=== PATIENT | male | born 1945 | race Caucasian/White ===

== ENCOUNTER → 2021-03-16 11:17 | Outpatient (CLI) | payer MEDICARE, OTHER, SELFPAY ==
--- NOTE | 2021-03-16 11:22 | RAD_ITS ---
STUDY: X-RAY - LEFT KNEE REASON FOR EXAM: Male, 75 years old. Left knee pain and swelling TECHNIQUE: 4 view(s) of the knee. COMPARISON: None. FINDINGS: Normal visualized distal femur. Normal visualized proximal tibia and fibula. Normal proximal tibiofibular articulation. There is mild degenerative arthrosis of the medial femorotibial compartment. Normal lateral femorotibial compartment. There is minimal degenerative arthrosis of the patellofemoral articulation. There is a soft tissue prominence in the suprapatellar region suggesting a trace volume joint effusion. The soft tissue structures are unremarkable. RAD/Knee 4 or More Views IMPRESSION: Medial compartment osteoarthrosis. Trace joint effusion. Electronically Signed: Louie Stafford MD (Brooks) at 14:33 EDT , Service support ,
== END ==
PROVIDERS: PCP Family Medicine; Referring Provider Family Medicine; Visit Provider Family Medicine
DX: M25.562 Pain in left knee (principal)
CPT/HCPCS: 73564

== ENCOUNTER → 2021-05-15 07:15 | Outpatient (CLI) | payer MEDICARE, OTHER, SELFPAY ==
[2021-05-15 10:00] LABS: Hematocrit 49.5 % (40-54); Hemoglobin 15.9 g/dL (13.0-16.5); Mean Corp Hgb Conc 32.1 g/dL (32-36); Mean Corpuscular Hgb 29.8 pg (27.0-32.0); Mean Corpuscular Volume 92.7 fL (80-94); Mean Platelet Vol. 9.7 fl (6.2-12.0); Platelet Count 201 K/mm3 (150-450); RBC Distribution Width CV 12.9 % (11.6-14.6); RBC Distribution Width SD 43.8 fl (35.1-43.9); Red Blood Count 5.34 M/mm3 (4.6-6.2); White Blood Count 5.2 K/mm3 (4.4-11.0)
[2021-05-15 10:22] LABS: Vitamin B12 367 pg/mL (211-911)
[2021-05-15 10:42] LABS: ALB/GLOB Ratio 0.9 RATIO (0.9-2.4); AST(SGOT) 16 U/L (15-37); Alanine Aminotransfer ALT/SGPT 26 U/L (16-61); Albumin, Serum 3.6 g/dL (3.2-5.0); Alkaline Phosphatase 41 U/L (45-117); Anion Gap 3 (5-15); BUN 15 mg/dL (7-18); Calcium,Total 9.5 mg/dL (8.5-10.1); Chloride 107 mmol/L (98-107); Cholesterol 219 mg/dL (200); Creatinine, Serum 1.07 mg/dL (0.70-1.30); EST Glomerular Filtration Rate 71 mL/min (>60); Est Glom Filt Rate - Afr Amer 86 mL/min (>60); Globulin 3.8 g/dL (2.2-4.2); Glucose 84 mg/dL (74-106); High Density Lipoprotein 48 mg/dL; Potassium 4.2 mmol/L (3.5-5.1); Protein, Total 7.4 g/dL (6.4-8.2); Sodium Level 140 mmol/L (136-145); Thyroid Stim Hormone (TSH) 1.05 uIU/mL (0.358-3.74); Triglycerides 156 mg/dL; Very Low Density Lipoprotein 31 mg/dL (5-40)
[2021-05-18 16:34] LABS: Vitamin B1, Thiamine 145.3 nmol/L (66.5-200.0)
== END ==
PROVIDERS: PCP Family Medicine; Referring Provider Psychiatry & Neurology Neurology; Visit Provider Psychiatry & Neurology Neurology
DX: G31.84 Mild cognitive impairment of uncertain or unknown etiology (principal); E78.00 Pure hypercholesterolemia, unspecified
CPT/HCPCS: 36415; 80053; 80061; 82607; 82746; 84425; 84443; 85027

== ENCOUNTER 2022-11-01 10:57 | Emergency (ER) | payer MEDICARE, OTHER, SELFPAY ==
[2022-11-01 10:58] VITALS: BP 187/76; PULSE 50; RESP 17; TEMP 36.1; O2SAT 94; BMI 29.8
--- NOTE | 2022-11-01 11:09 | EKG12_ITS ---
Test Reason : HIGH BP Blood Pressure : / mmHG Vent. Rate : 048 BPM Atrial Rate : 048 BPM P-R Int : 158 ms QRS Dur : 082 ms QT Int : 438 ms P-R-T Axes : 000 062 055 degrees QTc Int : 391 ms Sinus bradycardia Otherwise normal ECG Confirmed by WILMAN RODRIGUEZ, NARESH ([id number]), food expeditor WISAM VOGT ([id number]) on 11/04/2022 12:39:07 PM Referred By: PATRICK Confirmed By:NARESH STOVALL MD
--- NOTE | 2022-11-01 11:09 | EX.ED.DYSGE1 ---
HPI History of Present Illness Chief Complaint: General Illness Detail of Chief Complaint: Patient was sent from urgent care because of bradycardia Informant: patient Onset/Context/Timing Onset: - (Patient fell down a flight of steps October 26) Context: Sudden Onset Timing: Intermittent Quality: Syncopal episode Location: Home Current Severity: Gone Maximum Severity: Not applicable Worsened by: Nothing Relieved by: Nothing specific Associated Symptoms Associated Symptoms: Patient states he did not feel right did feel sick to his stomach may have Narrative Narrative: Patient is a 77-year-old male with no past medical history on no medication who was walking up a flight of stairs to go to his bedroom on October 26. At the top of the steps he became lightheaded felt nauseous and may have become diaphoretic. He felt down the flight of steps. He states he woke at the bottom of the steps. He states he could not move. When he attempted to get up he passed out again. He slept on the floor for 4 hours. He then got up and went to his bed. His and daughter thought he should be checked out. He went to the urgent care. An EKG was performed which revealed heart rate in the 40s. The nurse practitioner called the emergency room. I did speak with her. She was concerned because he fell down a flight of steps and he is bradycardic. She informed me that he is on no meds with no significant past medical history. He denies headache. He denies visual, ocular auditory symptoms. [place] ringing in his ears. He denies epistaxis. Denies dental trauma. He denies neck pain. He denies paresthesia, anesthesia or motor weakness present at the time of the fall. He denied chest discomfort of any type. He denies shortness of breath. He denies leg pain, swelling discoloration. He states he believes he has a bruise right hip area. Prior similar symptoms: No Recent Illness/Hospitalization: No PFSH PFSH Medical History Back ache Bowel incontinence Cognitive change Glaucoma Hepatitis Hypercholesterolemia Left knee pain MRI of brain abnormal Urinary calculus Allergy/AdvReac Type Severity Reaction Status Date / Time No Known Allergies Allergy Verified 11/01/22 10:58 Family History Mother Arthritis High cholesterol Sister History of blood clots Cervical cancer Father Myocardial infarction, Onset Age: 60 Heart disease Surgical History History of appendectomy Social History (Updated 11/01/22 @ 11:[address] Main Aguirre MD) household members: spouse Smoking Status: Never smoker Electronic Cigarette Use: not used second hand exposure: No alcohol intake: never substance use type: does not use ROS ROS ED Constitutional Constitutional ED: Denies chills, fever(s), subjective, sweats or weight loss Eyes Eyes: Denies blurry vision, change in vision or diplopia ENT ENT ED: Denies ear pain, rhinorrhea or sore throat Cardiovascular Cardiovascular: Denies chest pain, orthopnea, palpitations, paroxysmal nocturnal dyspnea or racing heartbeat Respiratory/Chest Respiratory/Chest: Denies cough, dyspnea, dyspnea on exertion, orthopnea or paroxysmal nocturnal dyspnea Gastrointestinal Gastrointestinal: Denies abdominal pain, diarrhea, melena, nausea or vomiting Genitourinary Genitourinary ED: Denies dysuria, hematuria or urinary frequency Musculoskeletal Musculoskeletal: Denies arthralgias, back pain, myalgias or neck pain Integumentary Denies Abrasions or rash Neurologic Neurologic: Denies headache(s), paresthesias or weakness Endocrine Endocrinology: Denies cold intolerance, heat intolerance, polydipsia or polyuria Hematologic/Lymphatic Hematologic/Lymphatic: Reports systems reviewed and no addt'l complaints, except as documented and other Details: He is not on antiplatelet or anticoagulant. EXAM Physical Exam Const Vital Signs: 11/01/22 10:58 11/01/22 11:01 11/01/22 12:00 Temperature 96.9 F L Temperature Source Temporal Pulse Rate 50 L 44 L Respiratory Rate 17 13 Respiratory Effort Normal Non-Labored Respiratory Pattern Normal Blood Pressure 187/76 H 155/73 H Blood Pressure Mean 113 100 Pulse Ox 94 94 Oxygen Delivery Method Room Air Room Air Positive well nourished and well developed General Appearance ED: well developed and NAD; Negative for cyanotic, diaphoretic or pallor HEENT Reports moist mucous membranes HEENT Narrative: Head is atraumatic normocephalic. There is no clinical findings of basilar skull fracture. There is no septal deviation or hematoma. There is no dental trauma. Posterior pharynx erythema or exudate. Uvula is midline. There is no deviation of the tongue with protrusion. Eyes PERRL and EOMs intact bilaterally Eyes Narrative: There is no APD. There is no nystagmus. There is no subconjunctival hemorrhage noted. There is no hyperesthesia of the infraorbital nerve. There is no step-off with palpation in the infraorbital rim. General Eye ED: Negative for pale conjunctiva or scleral icterus Neck no lymphadenopathy, supple and no JVD Neck Narrative: There is no pain palpation of the posterior neck. He has full active range of motion without hesitation or grimacing or complaint of pain. Chest Wall inspection of chest normal and palpation of chest normal Resp normal respiratory effort and clear to auscultation bilaterally Cardio regular rhythm, S1 normal heart sound, S2 normal heart sound and no murmurs Rate: bradycardia GI normal to inspection, nondistended, normoactive bowel sounds, non-tender, non-distended and no masses; Negative for hepatosplenomegaly Palpation: soft Back/Spine no CVA tenderness Cervical Spine: Negative for cervical spine tenderness Thoracic Spine / Upper Back: Negative for thoracic spinal tenderness Lumbar Spine / Lower Back: Negative for lumbar spinal tenderness Extremity normal to inspection General Extremety ED: Negative for edema or tenderness General Extremity: Negative for edema Neuro No oriented x3, No CN's II-XII intact bilaterally and No no sensory deficits noted Neuro Narrative: There is no dysmetria. Bicep, brachialis, triceps, patella and ankle reflexes are 2+ and symmetric. There is no clonus or Babinski sign noted. Sensorium / Orientation: alert Sensory Exam: No sensory level loss detected Motor Exam: strength 5/5 throughout Psych mental status grossly normal Skin no rashes or lesions noted, no wounds and skin turgor normal General Skin Exam: elasticity normal; Negative for jaundice or pallor MDM MDM MDM Narrative Medical decision making narrative: Monitor reveals a sinus bradycardia rate of 47. Twelve-lead EKG was obtained to evaluate for cardiac ischemia and confirmed the patient is in a sinus rhythm. Troponin was obtained to evaluate for cardiac ischemia. CBC to assess H&H. BMP to assess renal function and electrolytes. If patient's work-up is negative we will contact ground control approach technician on-call Dr. Bryce Fox regarding observation telemetry versus outpatient Holter monitor and cardiac follow-up. Review of prior records indicates patient is on no meds and has no significant past medical history. There is note that he has history of glaucoma. He also has documentation for mild cognitive impairment. Case was just passed with Dr. Bryce Fox. Requested 48-hour Holter monitor and for patient to call the office for follow-up appointment. Per the [place] CT head rules and there is no evidence of trauma he has no complaint of headache fact this occurred 6 days ago and has a nonfocal neurologic exam imaging of the head is not required. Per Nexus criteria since he has no pain no limited range of motion imaging is not required. Lab Data Attestation: I reviewed the patient's lab results. Lab results narrative: CBC is unremarkable. Basic metabolic panel is unremarkable. Troponin is negative with symptoms that occurred 6 days ago. Labs: Laboratory Results - last 24 hr 11/01/22 11/01/22 11:05 11:05 WBC 5.9 RBC 5.68 Hgb 17.0 H Hct 51.0 MCV 89.8 MCH 29.9 MCHC 33.3 RDW Std Deviation 41.5 RDW Coeff of Donn 12.5 Plt Count 298 MPV 9.8 Sodium 140 Potassium 4.4 Chloride 106 Carbon Dioxide 29.0 Anion Gap 5 BUN 13 Creatinine 1.21 Estim Creat Clear Calc 47.80 Est GFR (MDRD) Af Amer 75 Est GFR (MDRD) Non-Af 62 BUN/Creatinine Ratio 10.7 Glucose 95 Calcium 9.3 Troponin I High Sens 6 EKG Initial EKG: Attestation: I personally reviewed and interpreted this EKG as follows: Interpretation: Sinus Bradycardia (Rate is 48. The EKG is otherwise unremarkable. [place] interval is 158 ms. QRS duration 82 ms. QT duration 438 ms. [place] is normal. There are note was cute ischemic changes. Prior EKG was normal. The only difference is the bradycardia.) Discharge Plan Triage Chief Complaint: General Illness ED Provider: Main Aguirre Dx/Rx/DC Orders Clinical Impression: Syncope and collapse, Hypercholesterolemia, Sinus bradycardia, Fall down steps Instructions: Dizziness Fainting Causes, ED Bradycardia Primary Care Provider: Wan Fink Referrals: Bryce Fox MD [Med Staff - Active Staff] - 3-5 Days Wan Fink MD [Primary Care Provider] - Disposition Disposition: Home, Self Care
[2022-11-01 11:22] LABS: Mean Corp Hgb Conc 33.3 g/dL (32-36); Mean Corpuscular Hgb 29.9 pg (27.0-32.0); Mean Corpuscular Volume 89.8 fL (80-94); Mean Platelet Vol. 9.8 fl (6.2-12.0); Platelet Count 298 K/mm3 (150-450); RBC Distribution Width CV 12.5 % (11.6-14.6); RBC Distribution Width SD 41.5 fl (35.1-43.9); Red Blood Count 5.68 M/mm3 (4.6-6.2); White Blood Count 5.9 K/mm3 (4.4-11.0)
[2022-11-01 11:42] LABS: Anion Gap 5 (5-15); BUN 13 mg/dL (7-18); BUN/Creat Ratio 10.7 RATIO (10-20); Calcium,Total 9.3 mg/dL (8.5-10.1); Chloride 106 mmol/L (98-107); Creatinine, Serum 1.21 mg/dL (0.70-1.30); EST Glomerular Filtration Rate 62 mL/min (>60); Est Glom Filt Rate - Afr Amer 75 mL/min (>60); Glucose 95 mg/dL (74-106); Potassium 4.4 mmol/L (3.5-5.1); Sodium Level 140 mmol/L (136-145); Troponin-I HS 6 pg/mL (3.0-78.0)
[2022-11-01 12:00] VITALS: BP 155/73; PULSE 44; RESP 13; O2SAT 94
[2022-11-01 12:53] VITALS: BP 166/67; PULSE 49
== END 2022-11-01 13:17 | disposition home or self-care (01) ==
PROVIDERS: Emergency Provider Emergency Medicine; PCP Family Medicine; Visit Provider Emergency Medicine
DX: R55 Syncope and collapse (principal); E78.00 Pure hypercholesterolemia, unspecified; R00.1 Bradycardia, unspecified
CPT/HCPCS: 80048; 84484; 85027; 93005; 93225; 93226; 99284; A4216

== ENCOUNTER 2022-11-01 12:59 | Outpatient (CLI) | payer MEDICARE, OTHER, SELFPAY | END 2022-11-01 23:59 | disposition home or self-care (01) | LOC: CVS 13:01 | PROVIDERS: PCP Family Medicine; Visit Provider Emergency Medicine | DX: R00.1 Bradycardia, unspecified (principal) | CPT/HCPCS: 93225; 93226 ==

== ENCOUNTER 2024-04-23 12:13 | Emergency (ER) | payer MEDICARE, OTHER, SELFPAY ==
[2024-04-23 12:14] VITALS: PULSE 56; RESP 21; TEMP 36.5; O2SAT 96; BMI 32.3
[2024-04-23 12:54] VITALS: BMI 32.3
--- NOTE | 2024-04-23 12:54 | EKG12_ITS ---
Test Reason : DIZZINESS Blood Pressure : / mmHG Vent. Rate : 052 BPM Atrial Rate : 052 BPM P-R Int : 166 ms QRS Dur : 082 ms QT Int : 416 ms P-R-T Axes : 059 057 054 degrees QTc Int : 386 ms Poor data quality, interpretation may be adversely affected Sinus bradycardia with Premature atrial complexes Otherwise normal ECG Confirmed by Marin uTcker ([id number]), editor trade journal YASMANY HUERTAS ([id number]) on 04/26/2024 2:03:22 PM Referred By: GASTON Confirmed By:Marin Tucker
--- NOTE | 2024-04-23 13:05 | ED.VIS.STROK ---
HPI History of Present Illness Chief Complaint: Dizziness Narrative Narrative: 78-year-old male past medical history of previous stroke on August 02 of last year presents with what he calls a flaky head. It is more feelings of lightheadedness than vertiginous symptoms. His family who is present states this is a same symptom that he had when he had his stroke. They relate history that they brought him in with his flaky feeling in his head, with stuttering symptoms, and he was admitted, within 48 hours his stroke worsened to the point where he had a left-sided paralysis and a facial droop that has improved after being at [facility]. He was at the primary care provider's office today when he started having this feeling again. He does take Eliquis because of the stroke. He had a loop recorder inserted few weeks ago to see what was going on with his heart to see if he was in atrial fibrillation. They are unsure as to the cause of his strokes but sent him to the emergency department because of the same feeling that he had. He denies paresthesias, difficulty with speech, or other symptoms. [facility] Medical History Stroke/cerebrovascular accident Hepatitis Glaucoma Back ache MRI of brain abnormal Left knee pain Cognitive change Hypercholesterolemia Urinary calculus Bowel incontinence Allergy/AdvReac Type Severity Reaction Status Date / Time No Known Allergies Allergy Verified 04/23/24 12:19 Family History Mother Arthritis High cholesterol Sister History of blood clots Cervical cancer Father Myocardial infarction, Onset Age: 60 Heart disease Surgical History History of loop recorder History of appendectomy Social History household members: spouse Smoking Status: Never smoker Electronic Cigarette Use: not used second hand exposure: No alcohol intake: never substance use type: does not use ROS ROS ED ROS Narrative Constitutional: No fever, no chills. HEENT: No sore throat. No neck pain. No loss of vision. No rhinorrhea. Cardiovascular: No chest pain. No palpitations. No pedal edema. Respiratory: No cough, no shortness of breath. Abdominal: No abdominal pain. No nausea. No vomiting. Genitourinary: No dysuria. No hematuria. Musculoskeletal: No myalgias. No arthralgias. Neurologic: No headaches. No dizziness. Questionable lightheadedness Flaky head Skin: No rash. No change in color. Psychiatric: No depression. No anxiety. EXAM Physical Exam Narrative Exam Narrative: Afebrile. Vital signs noted. HEENT: Normocephalic. Atraumatic. PERRL, EOMI. Neck soft and supple. No point tenderness or step off. Cardiovascular: Regular rate and rhythm. No murmurs, rubs, or gallops appreciated. Respiratory: No tachypnea. Lungs clear to auscultation bilaterally. Gastrointestinal: Abdomen soft, nontender, with normoactive bowel sounds. No rebound or guarding. Neurological: Awake. Alert. Oriented x 3. Nonfocal, nonlateralizing. Positive residual left-sided weakness with minimal ataxia of left lower extremity, significantly improved from left-sided facial droop and paralysis reported with cerebrovascular accident in 2022. Skin: No rash. Normal color. No pallor. Musculoskeletal: No pedal edema. Full range of motion extremities. Const Vital Signs: 04/23/24 12:14 04/23/24 12:54 04/23/24 13:20 Temperature 97.7 F L Temperature Source Temporal Pulse Rate 56 L 53 L Respiratory Rate 21 H 20 H Blood Pressure 139/73 H Blood Pressure Mean 95 Pulse Ox 96 95 Oxygen Delivery Method Room Air Room Air 04/23/24 14:15 Temperature Temperature Source Pulse Rate 61 Respiratory Rate 22 H Blood Pressure 129/65 H Blood Pressure Mean 86 Pulse Ox 95 Oxygen Delivery Method Room Air MDM MDM MDM Narrative Medical decision making narrative: I reviewed the patient's prior workups and laboratory work. Patient is already on Eliquis, and additionally I do not feel stroke team is indicated because his NIH stroke scale is essentially 0. Hence, I do not feel stroke team is indicated, and additionally he is not a TNK candidate as he does not have a debilitating weakness and he is already on Eliquis. I had a lengthy discussion with the patient and his family. While stroke workup will be pursued, I do not feel that he necessarily requires admission for TIA. They state that his stroke was on the jimmy, and on MRI it looks as if it had worsened after 48 hours which caused his paralysis. I reviewed his laboratory work and he has normal white count of 6.5, hemoglobin normal at 16.0 with hematocrit 48.1, platelet count normal at 242. Coagulation studies are negative with an INR of 1.0 and a PTT of 28.4. BUN is slightly elevated 23 with creatinine 1.23. Glucose is elevated appropriately at 84 with high-sensitivity troponin of 6. EKG obtained and interpreted by myself independently as sinus bradycardia with PACs at [address]pm [address] acute ST changes. No STEMI. I reviewed the radiology report of the CTA of the head and neck and there is carotid artery plaque formation but no large vessel occlusion. No evidence of acute hemorrhage. I did discuss the patient with the telemetry stroke neurologist at [facility] who performed her own evaluation and stated that the NIH stroke scale was 0 for her without deficit. Given this vague feeling of reported flaky head. I find this nonspecific. Patient is already on an anticoagulant and being worked up for his stroke from July. He was offered observation for TIA type symptoms but prefers outpatient workup which I find reasonable, and the stroke teleneurologist did find this a viable option as well to be continued to be worked up as an outpatient. Patient states he prefers discharge instead of observation. I feel he can be discharged to follow-up with his neurologist. His daughter is agreeable to the plan as well. Disposition is discharged home in stable condition. History & Record Review Discussion w/independent historian: Patient and Family Lab Data Attestation: I reviewed the patient's lab results. Labs: Laboratory Results - last 24 hr 04/23/24 13:05 WBC 6.5 RBC 5.36 Hgb 16.0 Hct 48.1 MCV 89.7 MCH 29.9 MCHC 33.3 RDW Std Deviation 42.0 RDW Coeff of Donn 12.8 Plt Count 242 MPV 9.2 Immature Gran % (Auto) 0.500 Neut % (Auto) 66.4 Lymph % (Auto) 18.3 L [place] % (Auto) 10.4 H Eos % (Auto) 3.6 Baso % (Auto) 0.8 Absolute Neuts (auto) 4.3 Absolute Lymphs (auto) 1.18 Nucleated RBC % 0 PT 13.6 INR 1.0 APTT 28.4 Sodium 138 Potassium 4.5 Chloride 106 Carbon Dioxide 27.0 Anion Gap 5 BUN 23 H Creatinine 1.23 Estim Creat Clear Calc 53.98 Est GFR (MDRD) Af Amer 73 Est GFR (MDRD) Non-Af 60 BUN/Creatinine Ratio 18.7 Glucose 84 Calcium 9.6 Troponin I High Sens 6 Radiography Diagnostic Testing: Clinical Impression(s) from Imaging Studies Chest X-Ray 04/23/24 13:35 IMPRESSION: No acute abnormality is seen. Electronically Signed: David Vieira MD at 13:48 EDT , Head/Neck CTA 04/23/24 13:55 IMPRESSION: Mild plaque formation at the origin of the right and left internal carotid arteries. No significant stenosis seen. Chronic involutional changes in the brain with evidence of prior right basal ganglia lacunar infarcts and small lacunar infarct in the left thalamus. Electronically Signed: David Vieira MD at 14:19 EDT , Management Discussion w/another healthcare provider: Headlight Adjuster ([facility] teleneurologist/stroke teleneurologist) Discharge Plan Triage Chief Complaint: Dizziness ED Provider: Ruddy Shah Dx/Rx/DC Orders Clinical Impression: Lightheadedness, History of stroke Instructions: ED Near-Fainting, Uncertain Cause Primary Care Provider: Matt Cohen Referrals: Wan Fink MD [Non-Staff] - Activity Restrictions/Additional Instructions: Return with new or worsening symptoms. Follow-up with your neurologist as soon as possible. Continue your Eliquis. Print Language: French Disposition Disposition: Home, Self Care
[2024-04-23 13:19] LABS: Absolute Lymphocyte Count 1.18 X10^3/uL (0.83-4.51); Absolute Neutrophil Count 4.3 X10^3/uL (2.0-7.7); Basophil# 0.05 X10^3/uL; Basophil% 0.8 % (0-1); Eosinophil# 0.23 X10^3/uL; Eosinophils% 3.6 % (0-5); Hematocrit 48.1 % (40-54); Lymphocyte # 1.18 X10^3/ul (0.83-4.51); Lymphocyte % 18.3 % (19-41); Mean Corp Hgb Conc 33.3 g/dL (32-36); Mean Corpuscular Hgb 29.9 pg (27.0-32.0); Mean Corpuscular Volume 89.7 fL (80-94); Mean Platelet Vol. 9.2 fl (6.2-12.0); Monocyte# 0.67 X10^3/uL; Monocyte% 10.4 % (0-10); NRBC Flagged by Analyzer 0 % (0-5); Neutrophil # 4.29 X10^3/uL (2.7-7.7); Neutrophil % 66.4 % (47-70); Platelet Count 242 K/mm3 (150-450); RBC Distribution Width CV 12.8 % (11.6-14.6); Red Blood Count 5.36 M/mm3 (4.6-6.2); White Blood Count 6.5 K/mm3 (4.4-11.0)
[2024-04-23 13:20] VITALS: BP 139/73; PULSE 53; RESP 20; O2SAT 95
[2024-04-23 13:31] LABS: Partial Thromboplast Time 28.4 Seconds (24.1-36.2); Prothrombin Time (Protime)PT. 13.6 SECONDS (11.7-14.9)
[2024-04-23 13:33] LABS: Anion Gap 5 (5-15); BUN 23 mg/dL (7-18); BUN/Creat Ratio 18.7 RATIO (10-20); Calcium,Total 9.6 mg/dL (8.5-10.1); Chloride 106 mmol/L (98-107); Creatinine, Serum 1.23 mg/dL (0.70-1.30); EST Glomerular Filtration Rate 60 mL/min (>60); Est Glom Filt Rate - Afr Amer 73 mL/min (>60); Estimated Creatinine Clearance 53.98 ml/min; Glucose 84 mg/dL (74-106); Potassium 4.5 mmol/L (3.5-5.1); Sodium Level 138 mmol/L (136-145); Troponin-I HS 6 pg/mL (3.0-78.0)
--- NOTE | 2024-04-23 13:35 | RAD_ITS ---
STUDY: X-RAY CHEST REASON FOR EXAM: Male, 78 years old. Neuro deficit, acute, stroke suspected TECHNIQUE: Single AP portable view of the chest. COMPARISON: None. FINDINGS: EKG electrodes are seen. According device is seen overlying the left cardiac border. The lungs are clear and expanded. There is no demonstrated pleural abnormality. Normal size heart. Normal mediastinum and nilay. Normal visualized pulmonary arteries. Normal visualized aortic arch and descending thoracic aorta. Normal visualized thoracic spine. There is degenerative osteoarthritis of the bilateral shoulders. There is no demonstrated abnormality of the visualized soft tissue structures of the upper abdomen. RAD/Chest 1 View IMPRESSION: No acute abnormality is seen. Electronically Signed: David Vieira MD at 13:48 EDT ,
--- NOTE | 2024-04-23 13:55 | CT_ITS ---
STUDY: CTA HEAD AND NECK WITH CONTRAST REASON FOR EXAM: Male, 78 years old. Neuro deficit, acute, stroke suspected RADIATION DOSAGE (If Supplied By Facility): CTDIvol = ( 31.02 ) mGy, DLP = ( 1566.19 ) mGycm TECHNIQUE: CT angiography was performed with a multi-detector CT scanner. Data acquisition was obtained from the skull base through the vertex following intravenous administration of IV 100mL [id number]-370. MIP images were reconstructed from the axial data set. Post-processing of the angiographic images was performed, with multiplanar reformation and 3D reconstruction. Individualized dose optimization techniques were used for this CT. COMPARISON: No relevant priors. FINDINGS: Normal bilateral petrous carotid arteries. There is calcified plaque formation of the right cavernous carotid artery, without a cross-sectional luminal stenosis. There is calcified plaque formation of the left cavernous carotid artery, without a cross-sectional luminal stenosis. Normal right A1 segments of the anterior cerebral artery. Normal left A1 segments of the anterior cerebral artery. Normal intact anterior communicating artery (ACOM). Normal bilateral A2 segments of the anterior cerebral arteries. Normal right M1 and M2 segments of the middle cerebral arteries, with a normal M1 bifurcation. Normal left M1 and M2 segments of the middle cerebral arteries, with a normal M1 bifurcation. Normal right posterior communicating artery (PCOM). Normal left posterior communicating artery (PCOM). Normal bilateral vertebral arteries. Normal basilar artery with a normal basilar bifurcation. The visualized bilateral superior cerebellar (SCA) arteries are normal. Normal bilateral P1, P2 and visualized P3 segments of the posterior cerebral arteries. There is no demonstrated aneurysm of the [place] of [place]. Moderate degree of cerebral atrophy. Decreased attenuation deep in the white matter of both cerebral hemispheres in keeping with the small vessel disease. There is evidence of a lacunar infarcts in the right basal ganglion and left thalamus. AORTIC ARCH: There is atherosclerotic calcific plaque formation of the aortic arch and great vessels arising from the aortic arch, without a hemodynamically significant stenosis. There is a normal origin of the brachiocephalic, left common carotid, and left subclavian arteries. RIGHT CAROTID ARTERIES: Normal right common carotid artery (CCA). Normal right common carotid bulb. There is mild atherosclerotic plaque formation of the origin of the right internal carotid artery with less than 50% cross sectional diameter stenosis. Normal visualized cervical portion of the right internal carotid artery. Normal origin of the right external carotid artery (ECA). LEFT CAROTID ARTERIES: Normal left common carotid artery (CCA). Normal left common carotid bulb. There is mild atherosclerotic plaque formation of the origin of the left internal carotid artery with less than 50% cross sectional diameter stenosis. Normal visualized cervical portion of the left internal carotid artery. Normal origin of the left external carotid artery (ECA). VERTEBRAL ARTERIES: Normal bilateral vertebral arteries. CT/CTA Head AND Neck W/ Contrast IMPRESSION: Mild plaque formation at the origin of the right and left internal carotid arteries. No significant stenosis seen. Chronic involutional changes in the brain with evidence of prior right basal ganglia lacunar infarcts and small lacunar infarct in the left thalamus. Electronically Signed: David Vieira MD at 14:19 EDT ,
[2024-04-23 14:15] VITALS: BP 129/65; PULSE 61; RESP 22; O2SAT 95
--- NOTE | 2024-04-23 14:49 | NURSING ---
pt and family aware of neuro consult to go over best recommendations. tele monitor to room and plugged in. waiting on neurologist
[2024-04-23 15:00] VITALS: BP 124/62; PULSE 54; RESP 21; O2SAT 94
[2024-04-23 15:20] VITALS: BP 124/62; PULSE 54; RESP 21; TEMP 36.1; O2SAT 94
== END 2024-04-23 15:22 | disposition home or self-care (01) ==
PROVIDERS: Emergency Provider Emergency Medicine; PCP Student in an Organized Health Care Education/Training Program; Visit Provider Emergency Medicine
DX: R42 Dizziness and giddiness (principal); I48.91 Unspecified atrial fibrillation; Z86.73 Personal history of transient ischemic attack (TIA), and cerebral infarction without residual deficits
CPT/HCPCS: 70496; 70498; 71045; 80048; 84484; 85025; 85610; 85730; 93005; 99285; Q9967; A4216

== ENCOUNTER 2025-06-29 11:49 | Observation (INO) | payer MEDICARE, OTHER, SELFPAY ==
[2025-06-29] VITALS (13 sets, daily range): BP systolic 112–153; BP diastolic 52–81; PULSE 51–73; RESP 14–21; TEMP 36.5–36.7; O2SAT 91–99; BMI 32.1; BMI 30.7
--- NOTE | 2025-06-29 11:59 | CT_ITS ---
PROCEDURE: STROKE BRAIN/HEAD WITHOUT CONT 06/29/2025 REASON FOR EXAM: NEURO DEFICIT, ACUTE, STROKE SUSPECTED TECHNIQUE: Procedure Code: CTBR.ST Modality: CT Procedure: STROKE BRAIN/HEAD WITHOUT CONT Coronal and Sagittal reconstruction series were provided. One or more dose reduction techniques were used (e.g., Automated exposure control, adjustment of the mA and/or kV according to patient size, use of iterative reconstruction technique. RADIATION DOSE SUMMARY: CTDlvol: 44.99 mGy DLP: 796.11 mGycm COMPARISON: Prior study dated April 23, 2024. FINDINGS: Brain: Low density in the periventricular white matter suggests mild chronic small vessel ischemic changes. Evidence of old lacunar infarct in the right basal ganglion. Calcification of the cavernous portions of the internal carotid arteries bilaterally. CSF Spaces: Moderate generalized cerebral atrophy Sinuses/Mastoids: Clear at visualized levels Bones: No skull fracture. CT/STROKE Brain/Head without Cont IMPRESSION: CHRONIC CHANGES. NO ACUTE FINDINGS. Stroke Alert: Chronic changes The critical findings in the findings and impression above were relayed directl y by me by telephone to Main Aguirre on 06/29/2025 at 12:38 pm with readback verification. Reading Location: [id number]
[2025-06-29 12:16] LABS: Hematocrit 48.0 % (40-54); Hemoglobin 15.7 g/dL (13.0-16.5); Immature Granulocytes Count 0.000 X10^3/uL (0.0-0.0); Mean Corp Hgb Conc 32.7 g/dL (32-36); Mean Corpuscular Volume 90.9 fL (80-94); Mean Platelet Vol. 9.5 fl (6.2-12.0); NRBC Flagged by Analyzer 0 % (0-5); Platelet Count 178 K/mm3 (150-450); RBC Distribution Width CV 12.9 % (11.6-14.6); RBC Distribution Width SD 43.0 fl (35.1-43.9); Red Blood Count 5.28 M/mm3 (4.6-6.2); White Blood Count 5.5 K/mm3 (4.4-11.0)
[2025-06-29 13:01] LABS: Prothrombin Time (Protime)PT. 16.1 SECONDS (11.7-14.9)
[2025-06-29 13:02] LABS: Partial Thromboplast Time 30.6 Seconds (24.1-36.2)
[2025-06-29 13:17] LABS: Troponin T High Sensitivity 10 ng/L (<=22)
[2025-06-29 13:20] LABS: Mucous, Urine 0 SEEN /hpf (<or=2+); Red Blood Cells-Urine 0 SEEN /hpf (0-5); Squamous Epithelial Cells - UA 0 SEEN /hpf (0-5)
[2025-06-29 13:21] LABS: Anion Gap 12 (5-15); BUN 15 mg/dL (4-19); BUN/Creat Ratio 11.6 RATIO (10-20); Calcium,Total 9.4 mg/dL (7.6-11.0); Carbon Dioxide 24.4 mmol/L (21.0-32.0); Chloride 101 mmol/L (98-108); Estimated Creatinine Clearance 51.27 ml/min (50-250); Glucose 88 mg/dL (70-99); Potassium 4.5 mmol/L (3.3-5.1)
[2025-06-29 13:52] LABS: Color, Urine Yellow (Yellow); Glucose, Dipstick Normal (Normal); Ketone-Dipstick Negative (Negative); Leukocyte Esterase-Dipstick Negative /ul (Negative); Nitrite-Dipstick Negative (Negative); Occult Blood-Urine Negative /ul (Negative); Protein-Dipstick Negative (Negative); Specific Gravity, Urine 1.015 (1.002-1.030); Urine Bilirubin Dipstick Negative (Negative)
--- NOTE | 2025-06-29 14:12 | ED.VIS.STROK ---
HPI History of Present Illness Chief Complaint: Neuro S/Sx Detail of Chief Complaint: Facial droop, confusion Informant: family and other (Caregiver) Onset/Context/Timing Onset: Yesterday (Late morning early afternoon) Context: Sudden Onset Timing: Continuous Quality and Location: Positive for Left Facial Droop, Left Arm Parasthesia, Left Leg Parasthesia, Left Arm Weakness, Left Leg Weakness (Foot drop on the left is old due to prior stroke), Slurred Speech and Difficulty with Ambulation; Negative for Expressive Aphasia or Receptive Aphasia Onset: Yesterday early afternoon late morning Current Severity: Mild Maximum Severity: Moderate Worsened by: Nothing Relieved by: Nothing Associated Symptoms Associated Symptoms: Positive for Nausea; Negative for Headache, Vomiting or Chest Pain Narrative Narrative: Patient is an 80-year-old gentleman. He had a prior stroke. He is not a good informant. He presents with strokelike symptoms that started yesterday. Exact time is unknown. Patient stated no to all questions. Caretakers informed that he has been complaining of nausea. He is confused which is not normal. He has had increase in facial droop on the left and increased weakness left extremities. Prior similar symptoms: Yes Recent Illness/Hospitalization: No PFSH PFS Medical History Stroke/cerebrovascular accident Hepatitis Glaucoma Back ache MRI of brain abnormal Left knee pain Cognitive change Hypercholesterolemia Urinary calculus Bowel incontinence Home Medications ?Medication ?Instructions ?Recorded ?Last Taken ?Type amlodipine 10 mg tablet 10 mg PO QHS 06/29/25 Unknown History atorvastatin 40 mg tablet 40 mg PO DAILY 06/29/25 Unknown History carbidopa 25 mg-levodopa 100 mg 1 tab PO TID 06/29/25 Unknown History tablet carbidopa ER 25 mg-levodopa 100 mg 1.5 tab PO 4X/DAY 06/29/25 Unknown History tablet,extended release tamsulosin 0.4 mg capsule 0.4 mg PO QHS 06/29/25 Unknown History Allergy/AdvReac Type Severity Reaction Status Date / Time No Known Allergies Allergy Verified 04/23/24 12:19 Family History Mother Arthritis High cholesterol Sister History of blood clots Cervical cancer Father Myocardial infarction, Onset Age: 60 Heart disease Surgical History History of loop recorder History of appendectomy Social History household members: spouse Smoking Status: Never smoker Electronic Cigarette Use: not used second hand exposure: No alcohol intake: never substance use type: does not use ROS ROS ED Review of Systems ROS Unobtainable: due to mental status Constitutional Constitutional ED: Denies chills, fever(s), subjective, sweats or weakness Eyes Eyes: Denies blurry vision or change in vision ENT ENT ED: Denies ear pain or rhinorrhea Cardiovascular Cardiovascular: Denies chest pain or palpitations Respiratory/Chest Respiratory/Chest: Denies cough, dyspnea or dyspnea on exertion Gastrointestinal Gastrointestinal: Denies abdominal pain, nausea or vomiting Genitourinary Genitourinary ED: Reports urinary frequency and other Details: Family is concerned he may have a UTI because of increased frequency ; Denies dysuria or hematuria Musculoskeletal Musculoskeletal: Denies arthralgias or myalgias Integumentary Denies rash Neurologic Neurologic: Reports headache(s) and weakness; Denies paresthesias Psychiatric Psychiatric: Reports depression; Denies anxiety Hematologic/Lymphatic Hematologic/Lymphatic: Denies easy bleeding or easy bruising EXAM Physical Exam Const Vital Signs: 06/29/25 11:50 06/29/25 12:01 06/29/25 13:52 Temperature 98.0 F Temperature Source Oral Pulse Rate 73 69 Respiratory Rate 14 Blood Pressure 153/81 H 135/69 H Blood Pressure Mean 105 91 Pulse Ox 93 92 Oxygen Delivery Method Room Air Room Air 06/29/25 14:29 06/29/25 14:30 Temperature 97.7 F L Temperature Source Pulse Rate 54 L 55 L Respiratory Rate 15 21 H Blood Pressure 140/72 H 141/75 H Blood Pressure Mean 94 97 Pulse Ox 96 91 Oxygen Delivery Method Room Air Positive well nourished and well developed General Appearance ED: well developed and NAD HEENT Reports TM's clear and moist mucous membranes atraumatic Tympanic Membrane ED: Yes TM's clear Eyes PERRL and EOMs intact bilaterally Eyes Narrative: There is no nystagmus. There is no visual field cut. General Eye ED: Negative for pale conjunctiva or scleral icterus Neck no lymphadenopathy, supple and no JVD Resp normal respiratory effort and clear to auscultation bilaterally Cardio Rate: regular rate Rhythm: regular rhythm GI normal to inspection, nondistended, normoactive bowel sounds, soft to palpation, non-tender, non-distended and no masses Extremity normal to inspection Neuro No oriented x3, No CN's II-XII intact bilaterally and no sensory deficits noted Neuro Narrative: Family states his speech is slightly slurred. Sensorium / Orientation: Negative for alert Motor Exam: strength 5/5 throughout Psych Mood & Affect: depressed Skin no wounds Rashes: no rashes MDM MDM MDM Narrative Medical decision making narrative: Patient presents with strokelike symptoms. Family is concerned he may have a UTI will add UA as well. He has new/worsening findings on the left compared to prior stroke that was in 2022. History & Record Review Discussion w/independent historian: Family and Significant other Lab Data Attestation: I reviewed the patient's lab results. Lab results narrative: CBC is unremarkable. Basic metabolic panel with slight elevation of creatinine of 1.25. UA is unremarkable. Labs: Laboratory Results - last 24 hr 06/29/25 06/29/25 06/29/25 11:57 12:03 12:05 WBC 5.5 RBC 5.28 Hgb 15.7 Hct 48.0 MCV 90.9 MCH 29.7 MCHC 32.7 RDW Std Deviation 43.0 RDW Coeff of Donn 12.9 Plt Count 178 MPV 9.5 Immature Gran % (Auto) 0.000 Neut % (Auto) 66.7 Lymph % (Auto) 22.1 [place] % (Auto) 7.9 Eos % (Auto) 2.6 Baso % (Auto) 0.7 Absolute Neuts (auto) 3.7 Absolute Lymphs (auto) 1.21 Nucleated RBC % 0 PT 16.1 H INR 1.3 APTT 30.6 Sodium 138 Potassium 4.5 Chloride 101 Carbon Dioxide 24.4 Anion Gap 12 BUN 15 Creatinine 1.25 H Estim Creat Clear Calc 51.27 Est GFR (MDRD) Non-Af 58 L BUN/Creatinine Ratio 11.6 Glucose 88 Calcium 9.4 Troponin T High Sens 10 Urine Color Urine Clarity Urine pH Ur Specific [place] Urine Protein Urine Glucose (UA) Urine Ketones Urine Occult Blood Urine Nitrite Urine Bilirubin Urine Urobilinogen Ur Leukocyte Esterase POC Glucose 87 06/29/25 12:45 WBC RBC Hgb Hct MCV MCH MCHC RDW Std Deviation RDW Coeff of Donn Plt Count MPV Immature Gran % (Auto) Neut % (Auto) Lymph % (Auto) [place] % (Auto) Eos % (Auto) Baso % (Auto) Absolute Neuts (auto) Absolute Lymphs (auto) Nucleated RBC % PT INR APTT Sodium Potassium Chloride Carbon Dioxide Anion Gap BUN Creatinine Estim Creat Clear Calc Est GFR (MDRD) Non-Af BUN/Creatinine Ratio Glucose Calcium Troponin T High Sens Urine Color Yellow Urine Clarity Clear Urine pH 7.0 Ur Specific [place] 1.015 Urine Protein Negative Urine Glucose (UA) Normal Urine Ketones Negative Urine Occult Blood Negative Urine Nitrite Negative Urine Bilirubin Negative Urine Urobilinogen Normal Ur Leukocyte Esterase Negative POC Glucose Radiography Diagnostic Testing: Clinical Impression(s) from Imaging Studies Brain CT 06/29/25 11:59 IMPRESSION: CHRONIC CHANGES. NO ACUTE FINDINGS. Stroke Alert: Chronic changes The critical findings in the findings and impression above were relayed directly by me by telephone to Main Aguirre on 06/29/2025 at 12:38 pm with readback verification. Reading Location: [facility] EKG Initial EKG: Attestation: I personally reviewed and interpreted this EKG as follows: Interpretation: Sinus Rhythm (. QS duration 84 ms. QT duration 420 ms. [place] is normal. In my opinion EKG is unremarkable. I Carly Watt I need hospitalist please for room 6 thanks) Management Discussion w/another healthcare provider: Hospitalist (Case was discussed with Dr. Alvin Moore. Full admit PCU) Discharge Plan Dx/Rx/DC Orders Clinical Impression: Dysarthria, Facial droop due to acute stroke, Acute left-sided weakness, Elevated blood pressure reading with diagnosis of hypertension, Mild cognitive impairment, Hypercholesterolemia Disposition Disposition: Acute Care Hospital [facility] NIHSS NIHSS 1a. Level of Consciousness: 1 - Not alert; Arousable by minor stimuli to obey, answer & respond 1b. LOC Questions: 1 - Answers ONE question correctly 2. Best Gaze: 0 - Normal 3. Visual: 0 - No visual loss 4. Facial Palsy: 1 - Minor paralysis (flattened nasolabial fold, asymmetry on smiling) 5a. Left Arm: 1 - Drift; arm drifts downward but doesn?t hit the bed 5b. Right Arm: 0 - No drift; arm holds 90 (or 45) degrees for full 10 seconds 6a. Left Le - Drift; leg falls by the end of 5-seconds, but does not hit bed 6b. Right Le - No drift; leg holds 30-degree position for full 5 seconds 7. Limb Ataxia: 0 - Absent 8. Sensory: 0 - Normal; no sensory loss 9. Best Language: 0 - No aphasia; normal 10. Dysarthria: 1 = [id number] dysarthria; 11. Extinction and Inattention: 0 - No abnormality Total: 6 Stroke Questions Stroke Team Activated: No Reviewed Inclusion/Exclusion criteria: No IV Thrombolytic Administered: No
--- NOTE | 2025-06-29 14:37 | ECHOD_ITS ---
Reason For Study Reason For Study: TIA/CVA Procedure This was a 2D Doppler, Color Flow transthoracic echocardiogram. Exam performed portable in ED. Left Ventricle Normal LV size. The left ventricular ejection fraction is 60 %. Stage 1 diastolic dysfunction. No regional wall motion abnormalities noted. Right Ventricle Normal RV size. Normal systolic function. Atria Normal left atrium. Normal right atrium. Mitral Valve Normal mitral valve. Tricuspid Valve Normal tricuspid valve. Mild (1+) tricuspid valve insufficiency. Pulmonary artery systolic pressure is 18 mmHg. Aortic Valve Trisinus/trileaflet aortic valve. Mild focal aortic valve calcification. Pulmonic Valve Normal pulmonic valve. Great Vessels Normal aortic root. The pulmonary artery is normal size. Inferior vena cava collapse with respiration. Pericardium/Pleural No pericardial effusion. MMode/2D Measurements & Calculations LVIDd: 4.7 cm IVSd: 1.0 cm LVOT diam: 1.9 cm LVIDs: 2.6 cm LVPWd: 1.0 cm LVOT area: 2.9 cm2 RVDd: 3.7 cm FS: 44.8 % asc Aorta Diam: 3.1 cm LAV(MOD-bp): 48.6 ml LVAd ap4: 19.1 cm2 LAV(MOD-bp) Indexed: 23.8 ml/m2 LVLd ap4: 7.0 cm LAV(MOD-sp2): 45.5 ml EDV(MOD-sp4): 44.7 ml LAV(MOD-sp4): 50.1 ml EDV(sp4-el): 44.6 ml LVAs ap4: 9.4 cm2 LVLs ap4: 5.5 cm ESV(MOD-sp4): 13.7 ml ESV(sp4-el): 13.6 ml EF(MOD-sp4): 69.4 % EF(sp4-el): 69.6 % LVAd ap2: 16.7 cm2 SV(MOD-sp4): 31.0 ml SV(MOD-sp2): 18.9 ml LVLd ap2: 7.1 cm SI(MOD-sp4): 15.2 ml/m2 SI(MOD-sp2): 9.2 ml/m2 EDV(MOD-sp2): 33.9 ml EDV(sp2-el): 33.7 ml LVAs ap2: 10.4 cm2 LVLs ap2: 6.2 cm ESV(MOD-sp2): 15.0 ml ESV(sp2-el): 14.8 ml EF(MOD-sp2): 55.7 % SV(sp4-el): 31.0 ml Ao sinus diam: 3.[address] Junction: 2.4 cm LA dimension(2D): 4.0 cm LA A4 area: 19.2 cm2 RA A4 area: 14.4 cm2 TAPSE: 2.3 cm Time Measurements MV dec time: 0.18 sec Doppler Measurements & Calculations MV E max derrek: 65.3 cm/sec Lat Peak E' Derrek: 11.3 cm/sec Med Peak E' Derrek: 7.5 cm/sec MV A max derrek: 68.9 cm/sec E/E' lat: 5.8 E/E' med: 8.7 MV E/A: 0.95 MV dec slope: 355.9 cm/sec2 Ao V2 max: 123.1 cm/sec LV V1 max: 98.8 cm/sec Ao max P.1 mmHg LV V1 max P.9 mmHg Ao V2 mean: 78.7 cm/sec LV V1 mean P.9 mmHg Ao mean P.9 mmHg LV V1 mean: 63.1 cm/sec Ao V2 VTI: 30.8 cm LV V1 VTI: 24.9 cm AV (velocity ratio): 0.81 RESHMA(I,D): 2.3 cm2 RESHMA(V,D): 2.3 cm2 SV(LVOT): 71.2 ml PA V2 max: 65.5 cm/sec TR max derrek: 194.9 cm/sec TR max P.2 mmHg ECHO/Echo Complete Interpretation Summary Normal LV size. The left ventricular ejection fraction is 60 %. Stage 1 diastolic dysfunction. Structurally normal valves. Ordering Physician: Alvin Hess Performed By: Letty Solano RDCS
--- NOTE | 2025-06-29 14:37 | MRI_ITS ---
PROCEDURE: MRI BRAIN WITHOUT CONTRAST 06/29/2025 REASON FOR EXAM: CVA TECHNIQUE: Procedure Code: MRIBR Modality: MR Procedure: BRAIN WITHOUT CONTRAST Multiplanar and multisequential MRI of the brain was performed without contrast. COMPARISON: CT head/angiography same day 06/29/2025. FINDINGS: No regions of abnormal restricted diffusion to indicate recent infarct. No evidence of acute intracranial hemorrhage, extra-axial collection, mass-effect, or other acute abnormality. Moderate generalized brain parenchymal volume loss with associated ex vacuo ventricular enlargement. Moderate chronic microangiopathic changes in the supratentorial primarily periventricular white matter. Major intracranial vascular flow voids appear preserved. Absent enterprise ocular lenses. Well-aerated paranasal sinuses and mastoid air cells. MRI/Brain without Contrast IMPRESSION: No acute intracranial abnormality; no acute infarct. Moderate parenchymal volume loss and chronic microangiopathic changes. Reading Location: [id number]
--- NOTE | 2025-06-29 14:53 | PCM.HP.STD ---
HPI - General General Date of Admission: 06/29/25 Date of Service: 06/29/25 Chief Complaint: Confusion HPI Narrative CLARISA ALTAMIRANO, is a 80 M who presents after waking up this morning and was notably confused. Patient was not able to tell them the dates nor who the president was. Was also just globally weak. 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 Presented to the emergency room for evaluation where he underwent a head CT that showed no acute process. Patient is doing better at this time. [ ] [facility] Medical History Stroke/cerebrovascular accident Hepatitis Glaucoma Back ache MRI of brain abnormal Left knee pain Cognitive change Hypercholesterolemia Urinary calculus Bowel incontinence Home Medications ?Medication ?Instructions ?Recorded ?Last Taken ?Type amlodipine 10 mg tablet 10 mg PO QHS 06/29/25 Unknown History atorvastatin 40 mg tablet 40 mg PO DAILY 06/29/25 Unknown History carbidopa 25 mg-levodopa 100 mg 1 tab PO TID 06/29/25 Unknown History tablet carbidopa ER 25 mg-levodopa 100 mg 1.5 tab PO 4X/DAY 06/29/25 Unknown History tablet,extended release tamsulosin 0.4 mg capsule 0.4 mg PO QHS 06/29/25 Unknown History Allergy/AdvReac Type Severity Reaction Status Date / Time No Known Allergies Allergy Verified 04/23/24 12:19 Family History Mother Arthritis High cholesterol Sister History of blood clots Cervical cancer Father Myocardial infarction, Onset Age: 60 Heart disease Surgical History History of loop recorder History of appendectomy Social History household members: spouse Smoking Status: Never smoker Electronic Cigarette Use: not used second hand exposure: No alcohol intake: never substance use type: does not use ROS ROS Narrative No upper extremity tremors but occasionally gets tremor of lower extremity. Has had benefit from taking Sinemet. Does at times get stuck when he is ambulating. But is able to be reminded when they tell him to move he is able to do so. Feeling cold right now but no overt fever or chills. All review of systems were negative except as mentioned above in the history of present illness and the other review of systems. Vital Signs Vital Signs Vital Signs: 06/29/25 11:50 06/29/25 12:01 06/29/25 13:52 Temperature 36.7 C Temperature Source Oral Pulse Rate 73 69 Respiratory Rate 14 Blood Pressure 153/81 H 135/69 H Blood Pressure Mean 105 91 Pulse Ox 93 92 Oxygen Delivery Method Room Air Room Air 06/29/25 14:29 06/29/25 14:30 Temperature 36.5 C L Temperature Source Pulse Rate 54 L 55 L Respiratory Rate 15 21 H Blood Pressure 140/72 H 141/75 H Blood Pressure Mean 94 97 Pulse Ox 96 91 Oxygen Delivery Method Room Air Weight Weight: 93.1 kg Body Mass Index (BMI) 32.1 Physical Exam Const alert and no apparent distress General Appearance: cooperative HEENT normocephalic, head/scalp atraumatic, hearing grossly normal bilaterally, moist oral mucous membranes, oropharynx normal and dentition normal Eyes PERRL Eyes Narrative: Left lateral nystagmus. No impaired vertical saccades. Resp normal respiratory effort, no retractions, no use of accessory muscles and clear to auscultation bilaterally Cardio regular rate, regular rhythm, S1 normal heart sound and S2 normal heart sound GI normal to inspection, nondistended, normoactive bowel sounds, soft to palpation, non-tender, non-distended and hepatosplenomegaly Extremity normal to inspection, full ROM and no clubbing, cyanosis or edema Neuro Neuro Narrative: Mo strength 5 5 in upper extremities bilaterally and right lower extremity 4 out of 5 in the left lower extremity. Does have a foot drop brace on. Sensorium / Orientation: awake, alert, oriented to person and oriented to place; Negative for oriented to time Coordination / Balance: [id number] test normal Psych affect normal Results Lab / Micro Data Attestation: I reviewed the patient's lab results. 06/29/25 12:05 06/29/25 12:03 Labs: Laboratory Results - last 24 hr 06/29/25 11:57: POC Glucose 87 06/29/25 12:03: Sodium 138, Potassium 4.5, Chloride 101, Carbon Dioxide 24.4, Anion Gap 12, BUN 15, Creatinine 1.25 H, Estim Creat Clear Calc 51.27, Est GFR (MDRD) Non-Af 58 L, BUN/Creatinine Ratio 11.6, Glucose 88, Calcium 9.4, Troponin T High Sens 10 06/29/25 12:05: WBC 5.5, RBC 5.28, Hgb 15.7, Hct 48.0, MCV 90.9, MCH 29.7, MCHC 32.7, RDW Std Deviation 43.0, RDW Coeff of Donn 12.9, Plt Count 178, MPV 9.5, Immature Gran % (Auto) 0.000, Neut % (Auto) 66.7, Lymph % (Auto) 22.1, [place] % (Auto) 7.9, Eos % (Auto) 2.6, Baso % (Auto) 0.7, Absolute Neuts (auto) 3.7, Absolute Lymphs (auto) 1.21, Nucleated RBC % 0, PT 16.1 H, INR 1.3, APTT 30.6 06/29/25 12:45: Urine Color Yellow, Urine Clarity Clear, Urine pH 7.0, Ur Specific [place] 1.015, Urine Protein Negative, Urine Glucose (UA) Normal, Urine Ketones Negative, Urine Occult Blood Negative, Urine Nitrite Negative, Urine Bilirubin Negative, Urine Urobilinogen Normal, Ur Leukocyte Esterase Negative EKG Initial EKG: Attestation: I personally reviewed and interpreted this EKG as follows: Prior EKG tracings: available for review EKG Rhythm Intrepretation: Sinus Rhythm Imaging Radiology Impression Brain CT 06/29/25 11:59 IMPRESSION: CHRONIC CHANGES. NO ACUTE FINDINGS. Stroke Alert: Chronic changes The critical findings in the findings and impression above were relayed directly by me by telephone to Main Aguirre on 06/29/2025 at 12:38 pm with readback verification. Reading Location: [id number] Assessment & Plan Assessment/Plan (1) Encephalopathy: PLAN: Patient was confused this morning as well as generally weak. Patient currently has no new focal deficits. He does have some chronic left-sided weakness due to his history of a pontine stroke in the past. Currently improved at this time. Working diagnosis is acute stroke versus variability related with his Parkinson's disease. The patient has had history of stroke certainly worthwhile reevaluating this with MRI of the brain as well as an echocardiogram. Check fasting lipid panel. PT, OT and speech therapy Will give patient aspirin. PLAN: Plan Parkinson disease: Continue with Sinemet. Patient to follow-up at the movement disorder center at [facility]. BPH: Continue with tamsulosin Hypertension: Given the possibility of this being a stroke, will hold his nighttime dose of amlodipine today. VTE prophylaxis with SCDs CODE STATUS: Addressed with the patient and his daughter, patient is DNR Comfort Care arrest. Charges/Coding Visit Charges Inpatient E&M: 93913 Init Hosp L3
[2025-06-29 15:00] LABS: Troponin T High Sens 2 HR 10 ng/L (<=22)
--- NOTE | 2025-06-29 15:14 | ED.RN ---
Unable to do NIHSS at 1500, ECHO in progress
--- NOTE | 2025-06-29 15:48 | CASEMGMT ---
Care Management Face to Face with patient for initial transition planning/care coordination assessment in the ED.? This video games storywriter introduced self and role at [facility]. Patient alert but confused, patients daughter in room and provided answers to assessment questions as able. Patient willing to participate in assessment and is able to answer all questions appropriately.? Care providers, pharmacy, and demographics verified. Admitting Diagnosis: Neuro s/sx Other diagnosis history: ?stroke, glaucoma, hypercholesterolemia, PCP: ?[facility] Specialists: ?Patient could not remember Preferred Pharmacy:? [place] Insurance: Medicare Prescription Benefit: yes Living Will/HPOA: ?None LNOK: ? Living Arrangements: ?patient lives with , requires assistance with ADLs and IADLs.?? [facility], daughter comes in on the weekends and helps Transportation: ?family DME: ?family reports they ?have everything? [facility] Community Resources: ?none Behavioral Health History: ?None Patient goals: Patient wishes to discharge home, denies need for home health care at this time. Patient denies any further needs or concerns at this time. Disposition Plan: admission to acute; RN CM/SW to follow for discharge planning needs that may arise. Radha Pedersen, MANAGER INTERNAL, PIER WORKER
--- NOTE | 2025-06-29 16:36 | CDU_ITS ---
Reason For Study Reason For Study: HX CVA Rt. Velocities/BP Lt. Velocities/BP Prox CCA 113.7/15.5 cm/sec. Prox CCA 92.4/13.9 cm/sec. Mid CCA 84.2/10.6 cm/sec. Mid CCA 88.8/13.9 cm/sec. Dist CCA 87.9/10.6 cm/sec. Dist CCA 88.8/13.9 cm/sec. Prox ICA 74.4/16.7 cm/sec. Prox ICA 86.9/15.7 cm/sec. Mid ICA 76.9/17.9 cm/sec. Mid ICA 84.5/20.1 cm/sec. Dist ICA 85.5/16.7 cm/sec. Dist ICA 87.5/21.5 cm/sec. Rt. ICA/CCA = 1.0. Lt. ICA/CCA = 1.0. Prox ECA 83.7/7.2 cm/sec. Prox ECA 85.3/5.7 cm/sec. Rt. Vert. 33.2/9.0 cm/sec. Lt. Vert. 57.8/10.6 cm/sec. Right Extracranial There is intimal thickening but no significant atherosclerotic plaque noted in the right common carotid artery. There is heterogeneous, irregular atherosclerotic plaque noted in the right internal carotid artery. There is intimal thickening but no significant atherosclerotic plaque noted in the right external carotid artery. Antegrade flow is noted in the right vertebral artery. Left Extracranial There is intimal thickening but no significant atherosclerotic plaque noted in the left common carotid artery. There is heterogeneous, irregular atherosclerotic plaque noted in the left internal carotid artery. There is intimal thickening but no significant atherosclerotic plaque noted in the left external carotid artery. Antegrade flow is noted in the left vertebral artery. Procedure Carotid Duplex 92486. This is a Carotid Duplex examination using B-mode, color flow and specral Doppler. The exam was diagnostic. Exam performed in department. VL/Carotid Duplex Ultrasound Interpretation Summary Mild (<50%) stenosis right extracranial internal carotid. Mild (<50%) stenosis left extracranial internal carotid. Flow within the vertebral arteries is antegrade bilaterally. Ordering Physician: Alvin Hess Referring Physician: Matt Cohen Performed By: David Fernandez RVT
[2025-06-29] MEDS: CARBIDOPA/LEVODOPA 1 EACH TABLET.ER 1.5 EACH PO ×2 (17:48→21:15)
[2025-06-29 18:30] LABS: Troponin T High Sens 4 HR 11 ng/L (<=22)
[2025-06-29] MEDS: APIXABAN 5 MG TABLET PO (21:21)
[2025-06-30 02:00] VITALS: BP 127/61; PULSE 55; RESP 16; TEMP 36.6; O2SAT 93
[2025-06-30 06:00] VITALS: BP 121/65; PULSE 53; RESP 15; O2SAT 95
[2025-06-30 06:24] LABS: Cholesterol 133 mg/dL (<=200); Low Density Lipoprotein Calc. 74 mg/dL; Triglycerides 111 mg/dL; Very Low Density Lipoprotein 22 mg/dL (5-40); cholesterol:hdl ratio screen 3.57
[2025-06-30 08:30] VITALS: BP 130/63; PULSE 45; RESP 18; TEMP 36.6; O2SAT 94
[2025-06-30] MEDS: APIXABAN 5 MG TABLET PO (08:50)
[2025-06-30] MEDS: CARBIDOPA/LEVODOPA 1 EACH TABLET.ER 1.5 EACH PO ×3 (08:50→17:28)
[2025-06-30 09:07] VITALS: O2SAT 95
--- NOTE | 2025-06-30 09:57 | CASEMGMT ---
Social Work Per imaging pt negative for stroke, therefore PHQ9 not completed. MIGUE Montes
--- NOTE | 2025-06-30 11:53 | CON.PCM.NE_ITS ---
Assessment and Plan: Neuro Assessment/Plan CLARISA ALTAMIRANO is a 80 M with a past medical history of PD being evaluated by Teleneurology for episode of confusion which has been described as not being able to tell date, year, lethargic and sleeping more than usual. No new focal neurological deficits. Stroke ruled out. Suspect toxic metabolic in etiology. Recommend checking Ammonia, Vitamin B12 ,TSH ,Folate.Blood pressure management and infectious work up as per primary team. Diagnosis: Encephalopathy, resolved I personally attended this patient and spent a total time of 55 minutes evaluating this patient including clinical assessment, review of chart, medical history imaging, and determining appropriate treatment and workup. HPI Consult Data Date of Consult: 06/30/25 HPI Narrative HPI Narrative: CLARISA ALTAMIRANO, is a 80 M who presents with episode of lethargy, confusion that lasted for couple of hours and resolved on my evaluation. 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 No active complains currently. CT head, CT angio and MRI BRAIN negative for acute stroke. [facility] Medical History Stroke/cerebrovascular accident Hepatitis Glaucoma Back ache MRI of brain abnormal Left knee pain Cognitive change Hypercholesterolemia Urinary calculus Bowel incontinence Home Medications ?Medication ?Instructions ?Recorded ?Last Taken ?Type acetaminophen 500 mg capsule 1,000 mg PO Q6H PRN unkno wn 06/29/25 Unknown History amlodipine 10 mg tablet 5 mg PO QHS unknown 06/29/25 Unknown History apixaban 5 mg tablet 5 mg PO BID stroke 06/29/25 Unknown History atorvastatin 40 mg tablet 40 mg PO DAILY 06/29/25 Unkn own History carbidopa ER 25 mg-levodopa 100 mg 1.5 tab PO 4X/DAY 1 Unknown History tablet,extended release lisinopril 10 mg tablet 10 mg PO DAILY unknown 06/29 Unknown History loratadine 10 mg tablet 10 mg PO DAILY unknown 06/29 Unknown History (Allersherryar) sertraline 150 mg capsule 150 mg PO DAILY unknown 05/16 Unknown History Allergy/AdvReac Type Severity Reaction Status Date / Time No Known Allergies Allergy Verified 04/23/24 12:19 Family History Mother Arthritis High cholesterol Sister History of blood clots Cervical cancer Father Myocardial infarction, Onset Age: 60 Heart disease Surgical History History of loop recorder History of appendectomy Social History household members: spouse Smoking Status: Never smoker Electronic Cigarette Use: not used second hand exposure: No alcohol intake: never substance use type: does not use Vital Signs Vital Signs Vital Signs: 06/29/25 12:01 06/29/25 13:52 06/29/25 14:29 Temperature 97.7 F L Temperature Source Pulse Rate 69 54 L Respiratory Rate 15 Respiratory Effort Respiratory Depth Respiratory Pattern Blood Pressure 135/69 H 140/72 H Blood Pressure Mean 91 94 Blood Pressure Source Blood Pressure Position Blood Pressure Location Pulse Ox 92 96 Oxygen Delivery Method Room Air 06/29/25 14:30 06/29/25 15:00 06/29/25 16:30 Temperature 97.8 F Temperature Source Oral Pulse Rate 55 L 59 L 52 L Respiratory Rate 21 H 18 18 Respiratory Effort Respiratory Depth Respiratory Pattern Blood Pressure 141/75 H 131/66 H 125/56 H Blood Pressure Mean 97 87 79 Blood Pressure Source Blood Pressure Position Blood Pressure Location Pulse Ox 91 99 95 Oxygen Delivery Method Room Air Room Air Room Air 06/29/25 17:13 06/29/25 17:30 06/29/25 19:00 Temperature Temperature Source Pulse Rate 60 Respiratory Rate Respiratory Effort Normal Non-Labored Respiratory Depth Normal Respiratory Pattern Normal Blood Pressure Blood Pressure Mean Blood Pressure Source Blood Pressure Position Blood Pressure Location Pulse Ox 95 Oxygen Delivery Method Room Air Room Air 06/29/25 19:21 06/29/25 20:21 06/29/25 21:10 Temperature Temperature Source Pulse Rate 54 L 53 L Respiratory Rate 15 15 Respiratory Effort Normal Non-Labored Respiratory Depth Normal Respiratory Pattern Normal Blood Pressure 112/52 L Blood Pressure Mean 72 Blood Pressure Source Monitor Blood Pressure Position Semi-Fowlers Blood Pressure Location Right Arm Pulse Ox 94 92 Oxygen Delivery Method Room Air Room Air Room Air 06/29/25 22:00 06/29/25 23:00 06/30/25 02:00 Temperature 97.9 F Temperature Source Temporal Pulse Rate 52 L 51 L 55 L Respiratory Rate 14 16 Respiratory Effort Respiratory Depth Respiratory Pattern Blood Pressure 127/69 H 127/61 H Blood Pressure Mean 88 83 Blood Pressure Source Monitor Monitor Blood Pressure Position Semi-Fowlers Semi-Fowlers Blood Pressure Location Right Arm Right Arm Pulse Ox 93 93 Oxygen Delivery Method Room Air Room Air 06/30/25 06:00 06/30/25 08:30 06/30/25 08:32 Temperature 97.8 F Temperature Source Oral Pulse Rate 53 L 45 L Respiratory Rate 15 18 Respiratory Effort Normal Non-Labored Respiratory Depth Normal Respiratory Pattern Normal Blood Pressure 121/65 H 130/63 H Blood Pressure Mean 83 85 Blood Pressure Source Monitor Blood Pressure Position Semi-Fowlers Blood Pressure Location Right Arm Pulse Ox 95 94 Oxygen Delivery Method Room Air Room Air Room Air 06/30/25 09:07 Temperature Temperature Source Pulse Rate Respiratory Rate Respiratory Effort Respiratory Depth Respiratory Pattern Blood Pressure Blood Pressure Mean Blood Pressure Source Blood Pressure Position Blood Pressure Location Pulse Ox 95 Oxygen Delivery Method Room Air Weight Weight: 88.9 kg Body Mass Index (BMI) 30.7 EEG Results Procedure Details EEG Procedure Details: CLARISA ALTAMIRANO is a 80 year old M with a past medical history of , who presents for evaluation of Electroencephalogram on DATE at TIME Physical Exam Neuro Neuro Narrative: -? General: Laying comfortably in bed; in no acute distress. -? HENT: Normal oropharynx and mucosa. Normal external appearance of ears and nose. Exophthalmos. -? Neck: Supple, no pain or tenderness -? CV:? No peripheral edema. -? Pulmonary:? Normal respiratory effort. -? Ext: No cyanosis, edema, or deformity -? Skin: No rash. Normal palpation of skin.? -? Musculoskeletal: full range of motion; no joint tenderness. Normal digits and nails by inspection. No clubbing. -? NEURO: -? Mental Status: The patient was alert and oriented to time, place, and person. Normal recent/remote memory, concentration, and general fund of knowledge. -? Language: speech is fluent.? Naming, repetition, fluency, and comprehension intact. -? Cranial Nerves: PERRL 2mm/brisk. EOMI, visual vasques full, left sided facial droop, facial sensation intact, hearing intact, tongue midline, no evidence of atrophy or fibrillations. As performed by the nurse Sternocleidomastoid and trapezius were equally strong. Soft palate raises equally, no uvular deviations -? Motor: left upper and lower extremity 4/5,otherwise intact l R L PF 3 l R L -? Tone: is normal and bulk is normal -? Sensation- Intact to light touch bilaterally -? Coordination: No dysmetria on [id number], finger follow finger or [id number]. Lab / Micro Data 06/29/25 12:05 06/29/25 12:03 Labs: Laboratory Results - last 24 hr 06/29/25 11:57: POC Glucose 87 06/29/25 12:03: Sodium 138, Potassium 4.5, Chloride 101, Carbon Dioxide 24.4, Anion Gap 12, BUN 15, Creatinine 1.25 H, Estim Creat Clear Calc 51.27, Est GFR (MDRD) Non-Af 58 L, BUN/Creatinine Ratio 11.6, Glucose 88, Calcium 9.4, Troponin T High Sens 10 06/29/25 12:05: WBC 5.5, RBC 5.28, Hgb 15.7, Hct 48.0, MCV 90.9, MCH 29.7, MCHC 32.7, RDW Std Deviation 43.0, RDW Coeff of Donn 12.9, Plt Count 178, MPV 9.5, Immature Gran % (Auto) 0.000, Neut % (Auto) 66.7, Lymph % (Auto) 22.1, [place] % (Auto) 7.9, Eos % (Auto) 2.6, Baso % (Auto) 0.7, Absolute Neuts (auto) 3.7, Absolute Lymphs (auto) 1.21, Nucleated RBC % 0, PT 16.1 H, INR 1.3, APTT 30.6 06/29/25 12:45: Urine Color Yellow, Urine Clarity Clear, Urine pH 7.0, Ur Specific [place] 1.015, Urine Protein Negative, Urine Glucose (UA) Normal, Urine Ketones Negative, Urine Occult Blood Negative, Urine Nitrite Negative, Urine Bilirubin Negative, Urine Urobilinogen Normal, Ur Leukocyte Esterase Negative, Urine RBC 0 SEEN, Urine WBC 0 SEEN, Ur Squamous Epith Cells 0 SEEN, Urine Bacteria 0 SEEN, Urine Mucus 0 SEEN 06/29/25 14:22: Troponin T Hi Sens 2 Hr 10 06/29/25 16:42: Troponin T Hi Sens 4Hr 11 06/30/25 05:09: Triglycerides 111, Cholesterol 133, LDL Cholesterol, Calc 74, VLDL Cholesterol 22, HDL Cholesterol 37 L, Cholesterol/HDL Ratio 3.57 Imaging Radiology Impression Brain CT 06/29/25 11:59 IMPRESSION: CHRONIC CHANGES. NO ACUTE FINDINGS. Stroke Alert: Chronic changes The critical findings in the findings and impression above were relayed directly by me by telephone to Main Aguirre on 06/29/2025 at 12:38 pm with readback verification. Reading Location: [facility] Brain MRI 06/29/25 14:37 IMPRESSION: No acute intracranial abnormality; no acute infarct. Moderate parenchymal volume loss and chronic microangiopathic changes. Reading Location: [id number] Echocardiogram 06/29/25 14:37 Interpretation Summary Normal LV size. The left ventricular ejection fraction is 60 %. Stage 1 diastolic dysfunction. Structurally normal valves. Ordering Physician: Alvin Hess Performed By: Letty Solano RDCS Active Medications Active Medications Active Medications: Current Medications Generic Name Dose Route Start Last Admin Trade Name Freq PRN Reason Stop Dose Admin Acetaminophen 650 mg 06/29/25 16:36 Acetaminophen 325 Mg Tablet PO Q6H PRN PRN Pain 1-10 Or Fever>100.7 Amlodipine Besylate 10 mg 06/30/25 22:00 Amlodipine 10 Mg Tablet PO QHS [facility] Protocol Apixaban 5 mg 06/29/25 22:00 06/30/25 08:50 Apixaban 5 Mg Tablet PO 5 mg BID JANKI Administration Aspirin 81 mg 06/30/25 08:00 06/30/25 08:50 Aspirin 81 Mg Tab.Chew PO 81 mg BREAKFAST JANKI Administration Atorvastatin Calcium 40 mg 06/29/25 22:00 06/29/25 21:20 Atorvastatin Calcium 40 Mg Tablet PO 40 mg QHS JANKI Administration Carbidopa/Levodopa 1.5 each 06/29/25 21:00 06/30/25 08:50 Carbidopa/Levodopa 1 Each Tablet.Er PO 1.5 each 0900,1400,1800,2100 JANKI Administration Hydralazine HCl 5 mg 06/29/25 16:36 Hydralazine 20 Mg/Ml Vial IV 06/30/25 16:36 Q30M PRN maintain BP parameters with HR <60 Labetalol HCl 10 - 20 mg 06/29/25 16:36 Labetalol 20 Mg/4 Ml Vial IV 06/30/25 16:36 Q10M PRN PRN maintain BP parameters with HR >/=60 Ondansetron HCl 4 mg 06/29/25 16:36 Ondansetron 4 Mg/2 Ml Vial IV Q8H PRN PRN NAUSEA/VOMITING NIHSS NIHSS Nursing Documentation NIHSS Nursing Documentation: NIH Stroke Scale Start: 06/29/25 11:57 Freq: Status: Discharge Protocol: Activity Type Activity Date Activity User E-sign Co-sign Detail Recorded Client Recorded Date Recorded By Document 06/29/25 11:57 [id number] 06/29/25 11:58 06/29/25 11:57 NIH Stroke Scale [NIHSS] A score of 0 is normal or asymptomatic . Total possible score is 42. Inpatient: RN or Physician to activate a stroke alert for onset of new stroke symptoms or with NIHSS increase >/= 3 points. Following change in neurological status, NIHSS will be performed per physician order or more frequently PRN. -1a. Level of Consciousness 0 - Alert; keenly responsive -1b. LOC Questions 1 - Answers ONE question correctly -1c. LOC Commands 0 - Performs BOTH tasks correctly -2. Best Gaze 0 - Normal -3. Visual 0 - No visual loss -4. Facial Palsy 1 - Minor paralysis ( flattened nasolabial fold , asymmetry on smiling) -5a. Left Arm 0 - No drift; arm holds 90 ( or 45) degrees for full 10 seconds -5b. Right Arm 0 - No drift; arm holds 90 ( or 45) degrees for full 10 seconds -6a. Left Leg 1 - Drift; leg falls by the end of 5- seconds, but does not hit bed -6b. Right Leg 0 - No drift; leg holds 30- degree position for full 5 seconds -7. Limb Ataxia 0 - Absent -8. Sensory 0 - Normal; no sensory loss -9. Best Language 0 - No aphasia; normal -10. Dysarthria 0 - Normal -11. Extinction and Inattention 0 - No abnormality -Total 3 Query Text:A score of 0 is normal or asymptomatic. Total possible score is 42 . ED: Notify Physician for NIHSS increase by > / = 3 points. Inpatient: RN or Physician to activate a stroke alert for NIHSS increase of > / = 3 points. NIHSS: Ischemic Stroke/TIA Start: 06/29/25 16:36 Text: For PCU Patients: NIH and Neuro Check every 4 Status: Active hours, PRN and with change in RN caregiver. Freq: [id number] Protocol: Activity Type Activity Date Activity User E-sign Co-sign Detail Recorded Client Recorded Date Recorded By Document 06/30/25 08:30 [facility] 06/30/25 08:48 06/30/25 08:30 -1a. Level of Consciousness 0 - Alert; keenly responsive -1b. LOC Questions 0 - Answers BOTH questions correctly -1c. LOC Commands 0 - Performs BOTH tasks correctly -2. Best Gaze 0 - Normal -3. Visual 0 - No visual loss -4. Facial Palsy 0 - Normal symmetrical movements -5a. Left Arm 0 - No drift; arm holds 90 ( or 45) degrees for full 10 seconds -5b. Right Arm 0 - No drift; arm holds 90 ( or 45) degrees for full 10 seconds -6a. Left Leg 0 - No drift; leg holds 30- degree position for full 5 seconds -6b. Right Leg 0 - No drift; leg holds 30- degree position for full 5 seconds -7. Limb Ataxia 0 - Absent -8. Sensory 0 - Normal; no sensory loss -9. Best Language 0 - No aphasia; normal -10. Dysarthria 0 - Normal -11. Extinction and Inattention 0 - No abnormality -Total 0 Query Text:A score of 0 is normal or asymptomatic. Total possible score is 42 . ED: Notify Physician for NIHSS increase by > / = 3 points. Inpatient: RN or Physician to activate a stroke alert for NIHSS increase of > / = 3 points. Coma Scale [Assess] -Eye Opening Spontaneous -Motor Obeys Commands -Verbal Oriented [Total] -Coma Scale Total 15
[2025-06-30 12:30] VITALS: BP 125/61; PULSE 52; RESP 18; TEMP 36.6; O2SAT 93
--- NOTE | 2025-06-30 13:24 | CASEMGMT ---
Social Work SW spoke the the patient and his daughter and they are requesting a referral to [facility]. SW will submit the referral. The daughter reported they do no need DME. MIGUE Montes
--- NOTE | 2025-06-30 13:45 | CASEMGMT ---
Social Work SW scheduled HH for the patient MIGUE Montes
--- NOTE | 2025-06-30 13:57 | CASEMGMT ---
Social Work SW notified the patient and his daughter that [facility] accepted the referral. MIGUE Montes
[2025-06-30 14:41] VITALS: BMI 30.7
[2025-06-30 16:00] VITALS: BP 124/64; PULSE 54; RESP 16; TEMP 36.8; O2SAT 93
--- NOTE | 2025-06-30 16:32 | CASEMGMT ---
POLLO ROGERS NOTE: UM in collaboration with the UM Committee and pt?s provider have changed patient?s status from inpatient to outpatient with observation services. Met with patient and daughter, Yehuda, to inform of status change and to review HODGES form. HODGES form and its content were verbally explained. Yehuda voiced understanding and denies having any questions. Pt has had some confusion, so Yehuda signed HODGES form. Yehuda provided original signed HODGES form and copy placed in patient?s chart.? Yehuda denies having further questions or concerns.? Aiyana KANGN POLLO CM
--- NOTE | 2025-06-30 16:46 | PCM.DC.SUM ---
Providers Date of Admission: 06/29/25 Date of Discharge: 06/30/25 Primary Care Physician: Dr. Matt Cohen, Consultations 06/29/25 16:36 Consult: Tele-Neurology Routine Consulting Provider: [facility] Reason for Consult: Acute Ischemic Stroke/TIA EMERGENT Consult: No MD Notified: Yes Date Notified: 06/29/25 Time Notified: 14:32 Method of Notification: ED Physician Initiated Nursing Unit Staff Notify [facility] of Tele-Neurology Consult: Yes Reason For Visit: CVA Diagnosis Discharge Diagnosis (1) Encephalopathy: Status: Acute Code(s): G93.40 - Encephalopathy, unspecified Medications at Discharge Home Medications acetaminophen 500 mg capsule 1,000 mg PO Q6H PRN pain 06/29/25 amlodipine 10 mg tablet 5 mg PO QHS blood pressure 06/29/25 apixaban 5 mg tablet 5 mg PO BID stroke 06/29/25 atorvastatin 40 mg tablet 40 mg PO DAILY cholesterol 06/29/25 carbidopa ER 25 mg-levodopa 100 mg tablet,extended release 1.5 tab PO 4X/DAY parkinsons 06/29/25 lisinopril 10 mg tablet 10 mg PO DAILY blood pressure 06/29/25 loratadine 10 mg tablet (Allerclear) 10 mg PO DAILY allergies 06/29/25 sertraline 150 mg capsule 150 mg PO DAILY mental health 06/29/25 Hospital Course Operations None Procedures 2-D Echocardiogram, EKG and - (Carotid duplex are pending at discharge/CT the brain/MRI brain) Summary of Care Provided Minutes Spent on Discharge: 25 Hospital Course: Mr. Palmer is an 80-year-old white male who presented to the emergency department at [facility] on 05/30/2025 for confusion. Patient awoke on the morning of presentation and was notably confused per family. Patient was reportedly not able to tell his family dates or who the president and states was. He also was noted to be globally weak. Patient has a new diagnosis of Parkinson's and has recently started carbidopa levodopa and has history of pontine strokes that gave him persistent left-sided weakness with some left foot drop. Vital signs on presentation showed a temperature of 36.7, heart rate 73, respiratory rate 14, blood pressure 153/81 and pulse ox was 93% room air. CBC was unremarkable. Chemistry panel was unremarkable. Urine was not suggestive of infection. EKG was unremarkable. CT of the brain showed chronic changes but no acute findings. Given his symptoms patient was admitted for concern of stroke and stroke workup was ordered. Patient had echocardiogram which showed an EF of 60% and stage I diastolic function with structurally normal valves. MRI was unremarkable. Neurology evaluated patient and felt this was not probable stroke and felt it was more consistent with encephalopathy versus transient global amnesia. Patient was back to baseline at the time of my evaluation so would not pursue any further workup at this time. Family felt comfortable taking him home. He was seen by physical Occupational Therapy and they felt that he would benefit from home health given his generalized weakness and newly diagnosed Parkinson's disease. He does have follow-up with neurology up at [facility] at their movement disorder center. I have encouraged him to keep that appointment and to follow-up with her primary care physician within next 2 weeks. No changes in his medication made at time of discharge he was discharged home in stable condition on 06/30/2025. - Carotid Dopplers are pending at discharge Discharge diagnoses: Transient global amnesia Transient generalized weakness History of pontine stroke History of hypertension Depression Seasonal allergies Hyperlipidemia Parkinson disease History of B12 deficiency Glaucoma Cognitive impairment History of urinary incontinence Patient was initially admitted as full inpatient but after review of the case individually and with the medical and scientific illustrator/physician advisor, Dr. Hipolito Medrano, it was determined the patient did not meet inpatient criteria and status was changed outpatient. Physical Exam Narrative Daughter reports patient is pretty much back to his baseline. He is anxious to go home. We discussed negative MRI Const alert, oriented x3, no apparent distress and well nourished; Negative for average body habitus Constitutional Narrative: Obese, elderly, white male, sitting up in a chair at the bedside, daughter is at the bedside, mild forgetfulness but no issues with orientation at this time General Appearance: cooperative, comfortable, well kempt and well developed Exam Limitations: no limitations Nutritional Appearance: obese HEENT normocephalic, head/scalp atraumatic and moist oral mucous membranes Eyes conjunctivae normal Eyes Narrative: No scleral icterus Resp normal respiratory effort, no retractions, no use of accessory muscles and clear to auscultation bilaterally Auscultation: Negative for rales, rhonchi or wheezes Cardio regular rate, regular rhythm, S1 normal heart sound, S2 normal heart sound, no murmurs, no rub, no gallops and no clicks GI normal to inspection, nondistended, normoactive bowel sounds, soft to palpation and non-tender Extremity no clubbing, cyanosis or edema Extremity Narrative: 2+ radial pulses Neuro Neuro Narrative: Bradykinesia, left-sided weakness, speech is clear and intelligible but response time is slightly slowed Psych affect normal Psych Narrative: Very pleasant, interacts appropriately Weight / BMI Weight Weight: 88.9 kg Body Mass Index (BMI) 30.7 ABG / Lab / Microbiology Data 06/29/25 12:05 06/29/25 12:03 Laboratory: Laboratory Results - last 24 hr 06/29/25 12:45: Urine RBC 0 SEEN, Urine WBC 0 SEEN, Ur Squamous Epith Cells 0 SEEN, Urine Bacteria 0 SEEN, Urine Mucus 0 SEEN 06/29/25 16:42: Troponin T Hi Sens 4Hr 11 06/30/25 05:09: Triglycerides 111, Cholesterol 133, LDL Cholesterol, Calc 74, VLDL Cholesterol 22, HDL Cholesterol 37 L, Cholesterol/HDL Ratio 3.57 Radiography Diagnostic Testing: Radiology Impression Brain MRI 06/29/25 14:37 IMPRESSION: No acute intracranial abnormality; no acute infarct. Moderate parenchymal volume loss and chronic microangiopathic changes. Reading Location: [id number] D/C Instructions Discharge Activity: Return to Normal Activity DC O2, CPAP, BIPAP Needs Home O2 Discharge instructions: No DC home with Oxygen: No Meaningful Use Info Meaningful Use Meaningful Use Diagnoses (Choose all that apply): None applicable Discharge Plan Admission Admit Date/Time: 06/29/25 14:31 Primary Reason for Your Visit: Altered mental status Attending Provider: Tammy Hernandez Primary Care Provider: Matt Cohen Consulting Providers: Jefferson Ko; Charles Hameed; Beth Aj; Sandra Gutierrez; Stephanie Haile; Ba Durand; Georgina Brito; Jesus Chadwick; Hipolito Nielsen; Chadd Sands; Patt Boudreaux; Chelsey Herrera; Lauri Garcia; Sofiya Llanes; Ely Medina; Rory Minaya; Jesse Mejía; Nelly Pickett; Lonny Larkin; Lucia Hernandez; Chani Mills; Alvin Hess Discharge Orders/Prescriptions Prescriptions: Continued atorvastatin 40 mg tablet 40 mg PO DAILY amlodipine 10 mg tablet 5 mg PO QHS carbidopa-levodopa 25-100 mg tablet extended release 1.5 tab PO 4X/DAY apixaban 5 mg tablet 5 mg PO BID lisinopril 10 mg tablet 10 mg PO DAILY loratadine [Allerclear] 10 mg tablet 10 mg PO DAILY sertraline 150 mg capsule 150 mg PO DAILY acetaminophen 500 mg capsule 1,000 mg PO Q6H PRN (Reason: pain) Referrals / Follow Up: Matt Cohen DO [Primary Care Provider, Medical] - Within 2 Weeks Disposition Disposition (needs filled in before D/C Order can be placed): Home, Self Care Charges/Coding Visit Charges Inpatient E&M: 38028 Disch Hosp
== END 2025-06-30 17:52 | disposition home health service (06) ==
LOC: ED 14:41 → PCU 06-30 06:55
PROVIDERS: Emergency Provider Emergency Medicine; PCP Student in an Organized Health Care Education/Training Program; Visit Provider Internal Medicine
DX: G45.4 Transient global amnesia (principal); G20.A1 Parkinson's disease without dyskinesia, without mention of fluctuations; I69.354 Hemiplegia and hemiparesis following cerebral infarction affecting left non-dominant side; I10 Essential (primary) hypertension; G31.84 Mild cognitive impairment of uncertain or unknown etiology; E78.00 Pure hypercholesterolemia, unspecified; R53.1 Weakness; J30.2 Other seasonal allergic rhinitis; H40.9 Unspecified glaucoma; F32.A Depression, unspecified; R29.810 Facial weakness; G93.40 Encephalopathy, unspecified; R47.1 Dysarthria and anarthria; I69.398 Other sequelae of cerebral infarction; M21.372 Foot drop, left foot; R47.81 Slurred speech; Z79.899 Other long term (current) drug therapy; R35.0 Frequency of micturition; N40.0 Benign prostatic hyperplasia without lower urinary tract symptoms; I65.23 Occlusion and stenosis of bilateral carotid arteries
CPT/HCPCS: 36415; 70450; 70551; 80048; 80061; 81001; 82962; 84484; 85025; 85610; 85730; 92610; 93005; 93306; 93880; 94762; 97162; 97166; 97802; 99285; A4216